=== PATIENT | male | born 1980 | race Caucasian/White ===

== ENCOUNTER 2018-06-10 20:30 | Inpatient (IN) ==
[2018-06-10] MEDS ORDERED: SODIUM CHLORIDE 0.9% 1,000 ML IV STA (22:09)
[2018-06-10] MEDS ORDERED: ONDANSETRON 4 MG/2 ML VIAL IV STA (22:09)
[2018-06-10] MEDS ORDERED: HYDROmorphone 2 MG/1 ML VIAL IV STA ×2 (22:09→23:31)
[2018-06-10 22:16] LABS: Basophils # 0.1 10*3/uL (0.0-0.2); Basophils % 0.6 % (0.0-0.8); Eosinophils # 0.3 10*3/uL (0.0-0.87); Eosinophils % 3.3 % (0.00-10.9); Hematocrit 50.2 VOL% (42.0-52.0); Hemoglobin 16.9 GM/DL (14.0-18.0); Immature Granulocytes % 0.4 %; Immature Granulocytes Absolute 0.04 #; Lymphocytes # 2.5 10*3/uL (1.4-4.0); Lymphocytes % 25.5 % (21.2-54.2); Mean Corpuscular HGB Conc 33.7 GM/DL (32-36); Mean Corpuscular Hemoglobin 29 PG (27-34); Mean Corpuscular Volume 86.7 FL (87-102); Mean Platelet Volume 10.1 FL (9.6-12.0); Monocytes # 0.7 10*3/uL (0.11-0.8); Monocytes % 7.3 % (1.7-12.7); Neutrophils % 62.9 % (38.7-73.9); Platelet Count 302 T/CUMM (130-400); Red Blood Count 5.79 MC/CUMM (3.8-5.5); Red Cell Distribution Width 14.1 % (9.3-17.3); White Blood Count 9.6 T/CUMM (4-12)
[2018-06-10 22:30] LABS: Amorphous Crystals,Urine Occasional /HPF (Few); Apearance,Urine CLOUDY (Clear); Bilirubin,Urine Negative (Negative); Blood, Urine Negative (Negative); Glucose,Urine (UA) Negative (Negative); Ketones,Urine Negative (Negative); Nitrite,Urine Negative (Negative); Protein,Urine 30 MG/DL; Urine Color Yellow (Yellow); Urine Urobilinogen < 2.0 EU/DL (0.2-1.0)
[2018-06-10 22:40] LABS: Albumin 3.9 G/DL (3.4-5.0); Bilirubin,Total 0.4 MG/DL (0.2-1.0); Calcium 8.8 MG/DL (8.5-10.1); Osmolality,Calculated 281.3 MOS/KG (273-304); Potassium 4.1 MMOL/L (3.5-5.1); Total Protein 7.4 G/DL (6.4-8.3)
[2018-06-11] MEDS: SODIUM CHLORIDE 0.45% 1,000 ML IV SCH ×3 (02:19→21:01)
[2018-06-11] MEDS: MORPHINE 4 MG/1 ML VIAL IV PRN ×3 (03:45→20:59)
[2018-06-11 05:01] LABS: Risk Ratio 5.12; VLDL CHOLESTEROL 34.4 MG/DL
[2018-06-11 08:12] LABS: Osmolality,Calculated 281.3 MOS/KG (273-304); Potassium 3.9 MMOL/L (3.5-5.1)
[2018-06-11] MEDS: ENOXAPARIN 40 MG/0.4 ML SYRINGE SUBCUT SCH (08:42)
[2018-06-11] MEDS: ONDANSETRON 4 MG/2 ML VIAL IV PRN ×2 (11:58→21:05)
[2018-06-11] MEDS: GABAPENTIN 400 MG CAPSULE PO SCH ×4 (14:01→20:59)
[2018-06-11] MEDS: QUEtiapine 100 MG TABLET PO SCH ×2 (14:28→20:59)
[2018-06-11] MEDS: clonazePAM 0.5 MG TABLET PO SCH (15:06)
[2018-06-11] MEDS: VENLAFAXINE 75 MG TABLET PO SCH (15:06)
[2018-06-12] MEDS: SODIUM CHLORIDE 0.45% 1,000 ML IV SCH ×3 (03:55→19:32)
[2018-06-12 04:14] LABS: Basophils % 1.1 % (0.0-0.8); Eosinophils # 0.3 10*3/uL (0.0-0.87); Eosinophils % 7.4 % (0.00-10.9); Hematocrit 46.7 VOL% (42.0-52.0); Immature Granulocytes % 0.8 %; Immature Granulocytes Absolute 0.03 #; Lymphocytes # 1.6 10*3/uL (1.4-4.0); Lymphocytes % 42.5 % (21.2-54.2); Mean Corpuscular HGB Conc 34.3 GM/DL (32-36); Mean Corpuscular Hemoglobin 29 PG (27-34); Mean Corpuscular Volume 84.1 FL (87-102); Mean Platelet Volume 9.8 FL (9.6-12.0); Monocytes # 0.4 10*3/uL (0.11-0.8); Monocytes % 11.1 % (1.7-12.7); Neutrophils # 1.4 10*3/uL (1.4-7.4); Neutrophils % 37.1 % (38.7-73.9); Platelet Count 232 T/CUMM (130-400); Red Blood Count 5.55 MC/CUMM (3.8-5.5); White Blood Count 3.8 T/CUMM (4-12)
[2018-06-12 04:40] LABS: Calcium 7.7 MG/DL (8.5-10.1); Osmolality,Calculated 279.3 MOS/KG (273-304); Potassium 3.9 MMOL/L (3.5-5.1)
[2018-06-12 05:02] LABS: Band Neutrophils 2 % (0-10); Eosinophils 9 % (0-10); Lymphocytes 44 % (20-55); Platelet Estimate Normal; Segmented Neutrophils 37 % (50-85); Total Cells Counted 100
[2018-06-12] MEDS: GABAPENTIN 400 MG CAPSULE PO SCH ×5 (10:19→20:29)
[2018-06-12] MEDS: VENLAFAXINE 75 MG TABLET PO SCH (10:20)
[2018-06-12] MEDS: clonazePAM 0.5 MG TABLET PO SCH (10:20)
[2018-06-12] MEDS: ENOXAPARIN 40 MG/0.4 ML SYRINGE SUBCUT SCH (10:20)
[2018-06-12] MEDS: MORPHINE 4 MG/1 ML VIAL IV PRN ×3 (10:40→19:28)
[2018-06-12] MEDS: QUEtiapine 100 MG TABLET PO SCH (19:28)
[2018-06-12] MEDS: ONDANSETRON 4 MG/2 ML VIAL IV PRN (19:28)
[2018-06-13] MEDS: SODIUM CHLORIDE 0.45% 1,000 ML IV SCH ×2 (03:13→15:36)
[2018-06-13] MEDS: MORPHINE 4 MG/1 ML VIAL IV PRN ×2 (04:31→12:09)
[2018-06-13] MEDS: ONDANSETRON 4 MG/2 ML VIAL IV PRN ×2 (04:31→20:17)
[2018-06-13 05:39] LABS: Eosinophils # 0.3 10*3/uL (0.0-0.87); Eosinophils % 6.8 % (0.00-10.9); Hematocrit 46.2 VOL% (42.0-52.0); Hemoglobin 15.6 GM/DL (14.0-18.0); Immature Granulocytes % 0.5 %; Immature Granulocytes Absolute 0.02 #; Lymphocytes # 1.8 10*3/uL (1.4-4.0); Lymphocytes % 44.2 % (21.2-54.2); Mean Corpuscular HGB Conc 33.8 GM/DL (32-36); Mean Corpuscular Hemoglobin 29 PG (27-34); Mean Corpuscular Volume 84.3 FL (87-102); Mean Platelet Volume 9.8 FL (9.6-12.0); Monocytes # 0.3 10*3/uL (0.11-0.8); Monocytes % 8.3 % (1.7-12.7); Neutrophils # 1.6 10*3/uL (1.4-7.4); Neutrophils % 39.2 % (38.7-73.9); Platelet Count 235 T/CUMM (130-400); Red Blood Count 5.48 MC/CUMM (3.8-5.5); Red Cell Distribution Width 14.1 % (9.3-17.3); White Blood Count 4.1 T/CUMM (4-12)
[2018-06-13 06:00] LABS: Osmolality,Calculated 282.1 MOS/KG (273-304); Potassium 3.7 MMOL/L (3.5-5.1)
[2018-06-13] MEDS: ENOXAPARIN 40 MG/0.4 ML SYRINGE SUBCUT SCH (08:20)
[2018-06-13] MEDS: clonazePAM 0.5 MG TABLET PO SCH (08:20)
[2018-06-13] MEDS: GABAPENTIN 400 MG CAPSULE PO SCH ×4 (08:20→20:17)
[2018-06-13] MEDS: VENLAFAXINE 75 MG TABLET PO SCH (08:28)
[2018-06-13] MEDS: QUEtiapine 100 MG TABLET PO SCH ×2 (19:40→20:16)
[2018-06-14] MEDS: SODIUM CHLORIDE 0.45% 1,000 ML IV SCH ×3 (01:03→21:18)
[2018-06-14] MEDS: GABAPENTIN 400 MG CAPSULE PO SCH ×4 (08:33→20:17)
[2018-06-14] MEDS: VENLAFAXINE 75 MG TABLET PO SCH (08:33)
[2018-06-14] MEDS: ENOXAPARIN 40 MG/0.4 ML SYRINGE SUBCUT SCH (08:33)
[2018-06-14] MEDS: clonazePAM 0.5 MG TABLET PO SCH (08:33)
[2018-06-14] MEDS: QUEtiapine 100 MG TABLET PO SCH (20:18)
[2018-06-15] MEDS: SODIUM CHLORIDE 0.45% 1,000 ML IV SCH ×2 (07:20→17:20)
[2018-06-15] MEDS: ENOXAPARIN 40 MG/0.4 ML SYRINGE SUBCUT SCH (08:35)
[2018-06-15] MEDS: GABAPENTIN 400 MG CAPSULE PO SCH ×4 (08:36→20:06)
[2018-06-15] MEDS: clonazePAM 0.5 MG TABLET PO SCH (08:36)
[2018-06-15] MEDS: VENLAFAXINE 75 MG TABLET PO SCH (08:36)
[2018-06-15] MEDS: ONDANSETRON 4 MG/2 ML VIAL IV PRN (08:38)
[2018-06-15] MEDS: QUEtiapine 100 MG TABLET PO SCH (20:06)
[2018-06-16] MEDS: SODIUM CHLORIDE 0.45% 1,000 ML IV SCH (03:44)
[2018-06-16] MEDS ORDERED: LISDEXAMFETAMINE DIMESYLATE 70 MG PO SCH (09:00)
[2018-06-16] MEDS: VENLAFAXINE 75 MG TABLET PO SCH (10:07)
[2018-06-16] MEDS: clonazePAM 0.5 MG TABLET PO SCH (10:08)
[2018-06-16] MEDS: ENOXAPARIN 40 MG/0.4 ML SYRINGE SUBCUT SCH (10:08)
[2018-06-16] MEDS: GABAPENTIN 400 MG CAPSULE PO SCH (10:08)
[2018-06-16 11:48] VITALS: BP 104/54
== END 2018-06-16 13:22 | disposition home or self-care (01) | DRG 282 ==
LOC: N.ED 20:30 → N.EDINP 20:30 → N.TELEN 06-11 02:45 → SUATTDRO 06-11 13:51
PROVIDERS: ADMIT Internal Medicine; ATTEND Internal Medicine Geriatric Medicine